=== PATIENT | male | born 1995 | race Two or more races ===

== ENCOUNTER 2024-06-04 07:07 | Day surgery (SDC) | payer OTHER, SELFPAY ==
[2024-06-04] VITALS (16 sets, daily range): BP systolic 97–130; BP diastolic 61–78; PULSE 50–73; RESP 12–16; TEMP 36.1–37.1; O2SAT 95–98; BMI 35.9
--- NOTE | 2024-06-04 07:40 | W.PM.H&PU ---
History & Physical Update History & Physical Update H&P Reviewed and patient assessed: No changes noted
[2024-06-04] MEDS: SODIUM CHLORIDE 0.9 % (FLUSH) 10 ML SYRINGE IVF (08:00)
[2024-06-04] MEDS: 0.9 % SODIUM CHLORIDE 500 ML 500 ML 100 ML IV (08:00)
--- NOTE | 2024-06-04 08:21 | SUR.PREOP ---
TIME?OUT:?0821 PT/RN/MDA?VERIFICATION?OF?SURGICAL?SITE,?PROCEDURE,?AND?CONSENT OBTAINED?PRIOR?TO?INVASIVE?PROCEDURE.
[2024-06-04] MEDS: fentaNYL 100 MCG/2 ML inj IVP (08:23)
[2024-06-04] MEDS: MIDAZOLAM HCL 1 MG/ML inj IVP (08:23)
--- NOTE | 2024-06-04 08:54 | W.ANESCHARGE ---
Anesthesia Charges Start Date/Time Anesthesia Start Date: 06/04/24 Anesthesia Start Time: 09:01 Stop Date/Time Anesthesia Stop Date: 06/04/24 Anesthesia Stop Time: 12:01
--- NOTE | 2024-06-04 08:54 | W.PM.NB ---
Nerve Block Nerve Block Time Seen by Provider: 08:30 Type of block requested by surgeon for post-operative analgesia: popliteal Side: right Time out performed: Yes Verification of patient name: Yes Verification of date of : Yes Site marking: site marked Name of person performing procedure: Charles Continuous monitoring Was continuous monitoring of O2 sat, B/P, personnel monitor, recorded every 15 minutes?: Yes Procedure Checklist: sterile prep, needles and gloves Ultrasound guided. Images saved: Yes Medications given in 5ml increments after negative aspiration: Marcaine %: 0.25 mL: 20 Needle gauge: 20 Patient tolerated procedure well: Yes Additional comments: Needle noted adjacent to nerve Block Charges Block Charge (with Pro Fee): Sciatic Nerve Use of Ultrasound Machine for Block: Yes- US Guidance/pain block
--- NOTE | 2024-06-04 08:55 | P.NB_ITS ---
Nerve Block Nerve Block Time Seen by Provider: 08:30 Date Seen: 06/04/24 Type of block requested by surgeon for post-operative analgesia: femoral Side: left Time out performed: Yes Verification of patient name: Yes Verification of date of : Yes Site marking: site marked Name of person performing procedure: Charles Continuous monitoring Was continuous monitoring of O2 sat, B/P, cardiac rehabilitation program director, recorded every 15 minutes?: Yes Procedure Checklist: sterile prep, needles and gloves Ultrasound guided. Images saved: Yes Medications given in 5ml increments after negative aspiration: Marcaine %: 0.25 mL: 15 Needle gauge: 20 Precedex (mcg): 25 Patient tolerated procedure well: Yes Block Charges Block Charge (with Pro Fee): Femoral Nerve Use of Ultrasound Machine for Block: Yes- US Guidance/pain block
[2024-06-04] MEDS: Heparin 30,000 units/30 ml 30000 UNIT TOPICAL (09:00)
[2024-06-04] MEDS: CEFAZOLIN 2 GM in 0.9 % SODIUM CHLORIDE Mini-bag 100 ML IVPB (09:12)
--- NOTE | 2024-06-04 09:48 | CRLHL7_ITS ---
For Patients: As a result of the Century Cures Act, medical imaging exams and procedure reports are released immediately into your electronic medical record. You may view this report before your referring provider. If you have questions, please contact your health care provider. HISTORY: Intraoperative. TECHNIQUE: Fluoroscopy was provided intraoperatively for the surgical service. Single spot film acquired. COMPARISON: No prior. FINDINGS: Single spot film demonstrates a frontal view of the left knee. Dictated by Antony Lazaro MD @ 06/05/2024 5:55:26 AM (Electronically Signed)
--- NOTE | 2024-06-04 11:29 | PM.ORPRC ---
Procedure Note Date of procedure: 06/04/24 Procedure: PREOPERATIVE DIAGNOSIS: 1. Left knee ACL tear, acute 2. Left knee lateral meniscus tear, posterior horn/root 3. Left knee medial meniscus tear POSTOPERATIVE DIAGNOSIS: 1. Left knee ACL tear, acute 2. Left knee lateral meniscus tear, posterior horn/root 3. 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 Grade 3-4 chondromalacia small region patella median ridge centrally the over an 8 mm diameter region. PROCEDURE: 1. Left knee ACL arthroscopic reconstruction with independent tunnel drilling (quad tendon autograft with internal brace) 2. Bone graft/bone marrow concentrate harvest from proximal tibia via separate incision (60ml aspirated) SURGEON: Ko Baird M.D. POULTRY AND [employer] BUTCHER: Alexandre Mcbride PA-C; Frederick PANDEY. Of note, assistants were critical for this case to aid in patient positioning, knee manipulation, instrument exchange, graft preparation, camera assistance, bone graft harvest, and closure. ANESTHESIA: Spinal anesthetic plus femoral nerve block EBL: 25 mL TOURNIQUET: 110 minutes at 300 torr IMPLANTS: Arthrex tight rope femoral button; Arthrex tibial ABS button; Arthrex 4.75 mm PEEK SwiveLock suture anchor (x1); Allosync Pure demineralized bone matrix COMPLICATIONS: None evident INDICATIONS: The patient is a pleasant 28-year-old male. They experienced a left knee ACL disruption injury within the last month. MRI at that time confirmed ACL tear along with lateral meniscus tear near the posterior horn/root. There is also concern for medial meniscus possible tear. The patient desires to remain physically active with cutting/pivoting type activitiies/sports. Accordingly, surgery was indicated. FINDINGS: Exam under anesthesia revealed positive Kate's showing grade 2B. Positive pivot shift with a thud clunk. The diagnostic arthroscopy showed small region of grade 3-4 chondromalacia patella centrally on the median ridge. Also grade 2-3 chondromalacia weight-bearing portion medial femoral condyle over 10 mm diameter region and lateral femoral condyle over a 25 mm diameter region. The lateral meniscus was torn from the posterior root with some hemorrhagic tissue and frayed fibers in this region. The medial meniscus was otherwise intact including the posterior root and without any ramp lesions evident. The ACL was torn with positive empty wall sign. PCL was intact and robust. DESCRIPTION OF PROCEDURE: After a thorough discussion of risks, benefits, and alternatives, the patient was brought to the operating room and placed upon the operating table. Induction of anesthesia was undertaken as previously noted. 2g IV Ancef was administered within 1 hr of incision preoperatively. Appropriate time-out was performed identifying proper patient, site, and procedure. The left lower extremity was prepped and draped in the appropriate sterile fashion using ChloraPrep. Prior to tourniquet inflation, a small incision was made just lateral to tibial tubercle with 15 blade knife. The Arthrex Edwardo bone marrow aspiration trocar was then inserted and directed posterior and slightly proximal. 60 mL bone marrow aspiration was completed in a heparinized syringe. Blood was drawn to total 60ml of fluid for centrifugation. This was then spun in a centrifuge and bone marrow concentrate later utilized. This concentrate was mixed with Allosync Pure DBM and the autograft bone captured in the graft net device from tunnel drilling. This mixture was eventually placed into the sockets that were created for the ACL graft. After the bone marrow aspiration, the limb was exsanguinated and tourniquet inflated. A transverse incision was made approximately 1 cm proximal to the superior pole of the patella. We excised the subcutaneous fat sharply. The quad tendon was then visualized from the patellar attachment all the way more proximal towards its muscular transition. A 10mm double blade was utilized to sharply incise the quad tendon from the superior pole of patella as it was directed more proximally. This was done under direct visualization. We released it from the patella and placed it through the quad pro tendon harvester. (A partial-thickness quad tendon graft was able to be harvested due to the robustness of his quad.) This was turned in quarter turns slowly with proximal directed force. We passed this up approximately 65-68 mm of tendon. The tendon was then retrieved out the side hole and the quad pro cutting mechanism engaged with a robust quad tendon harvested of approximately that same target length. The quad was reapproximated with # 2-0 Stratafix in a running, locking fashion. Meanwhile, the graft was then prepared on the back table. Anterolateral and anteromedial portals were established with an 11 blade, and a diagnostic arthroscopy was performed. This identified the findings as noted above. Following the diagnostic arthroscopy, the lateral meniscus posterior root tear was further identified, freshened with a combination of arthroscopic shaver and arthroscopic rasp, and prepared for repair. Meanwhile, the remaining ACL graft fibers were debrided with the shaver. Our attention was turned to ACL tunnel creation/preparation and lateral posterior meniscus root repair. For the posterior root repair, a FlipCutter was utilized with the appropriate guide. The guide was placed, a small incision made over the anteromedial proximal leg adjacent to the tibial tubercle. Initially a guide pin was placed and once it was confirmed to be in the appropriate footprint of the posterior root lateral meniscus location, a FlipCutter was then drilled, the blade flipped, and retro drilled approximately 15 mm. This was after the lateral meniscus posterior horn was captured with 2 separate 2-0 FiberWire luggage tag type of suture passes with the meniscal scorpion. The sutures were not passed through the tunnel initially until the tibial tunnel had also been drilled for the ACL graft so as not to damage the sutures. Thus, a FlipCutter was utilized with a 10 mm graft measured and thus the same size hole created in both the femur (10 mm) and tibia (10 mm) with separate guides for independent tunnel drilling technique. After preparing the graft and drilling the tunnels, the button was passed out the lateral femoral cortex and confirmed to be flipped and apposed against the cortex with C-arm fluoroscopic imaging. After the button was passed, we utilized the autograft/allograft mixture which included autograft bone captured from the ACL tunnel drilling with the Arthrex Graft Net, the bone marrow autograft obtained from the proximal tibial plateau from the original incision over the proximal anterolateral tibia with the trocar, and the Allosync Pure demineralized bone matrix. This mixture of autograft and allograft was passed into the ACL tunnels with a beveled cannula under direct visualization. Then, the ACL graft was passed without difficulty 1st into the femoral socket and finally dunked into the tibial socket. After cycling the knee 35+ times with tension on the tibial sutures, we secured the tibial side with the tibial ABS button. After this, the internal brace suture tails (which had been passed through the ABS button) and the meniscus root repair sutures were secured with a PEEK SwiveLock suture anchor with the knee near full extension a slight posterior drawer applied being sure not to over tension this Internal Brace. The knee again was cycled and complete tension finalized on the femoral side again with the knee near full extension and a posterior drawer applied. A Kate test was performed again, and found to be stable. The graft and the meniscus repair was reprobed on the inside of the knee and again found to be taut and stable. The shaver was also utilized to ensure all remaining bony debris was evacuated from the medial and lateral compartments as well as suprapatellar pouch. At this stage, closure was completed with 2-0 Vicryl and 4-0 Monocryl to close the subcutaneous and subcuticular layers, respectively. Dressings were applied, tourniquet deflated, the patient awoken from anesthesia and transferred to the PACU in stable condition. PLAN: 1. Toe-touch weightbear operative extremity. Crutch / walker ambulation assistance PRN until quad control present at which time may advance to weightbear as tolerated if brace locked in full extension when she is more alert. 2. Ice, acetominophen and/or ibuprofen, and oxycodone for pain as needed. 3. Knee range of motion and quad sets/straight leg raise regularly, guided by physical therapy. 4. Follow up with PA visit in 1-2 weeks for a wound check.
[2024-06-04] MEDS: ONDANSETRON 2 MG/ML inj 4 MG IVP (12:02)
--- NOTE | 2024-06-04 12:02 | W.ANESCHARGE ---
Anesthesia Charges Start Date/Time Anesthesia Start Date: 06/04/24 Anesthesia Start Time: 09:01 Stop Date/Time Anesthesia Stop Date: 06/04/24 Anesthesia Stop Time: 12:01
== END 2024-06-04 13:28 | disposition home or self-care (01) ==
PROVIDERS: Visit Provider Orthopaedic Surgery Sports Medicine
PROC: (CPT 29888; principal; 2024-06-04 09:00)
DX: S83.512A Sprain of anterior cruciate ligament of left knee, initial encounter (principal); S83.282A Other tear of lateral meniscus, current injury, left knee, initial encounter; M94.262 Chondromalacia, left knee; G89.18 Other acute postprocedural pain
CPT/HCPCS: 29888; 20999; 29881; 01400; 64445; 64447; 73560; 76942; C1713; J0665; J0690; J1100; J1644; J2250; J2405; J2704; J3010; J7030; Q4125

== ENCOUNTER 2024-06-22 13:45 | Outpatient (RCR) | payer OTHER, SELFPAY | END 2024-10-19 09:35 | disposition home or self-care (01) | PROVIDERS: PCP Physician Assistant Surgical; Visit Provider Physician Assistant Surgical | DX: S83.282A Other tear of lateral meniscus, current injury, left knee, initial encounter (principal); S83.412A Sprain of medial collateral ligament of left knee, initial encounter; Z98.890 Other specified postprocedural states; M94.262 Chondromalacia, left knee; M25.562 Pain in left knee; R53.1 Weakness; Z74.09 Other reduced mobility; R26.9 Unspecified abnormalities of gait and mobility; Z51.89 Encounter for other specified aftercare | CPT/HCPCS: 97110; 97140; 97161 ==

== ENCOUNTER 2024-07-02 16:09 | Emergency (ER) | payer OTHER, SELFPAY ==
[2024-07-02 16:25] VITALS: BP 143/89; PULSE 74; RESP 16; TEMP 36.9; O2SAT 95; BMI 35.0
--- NOTE | 2024-07-02 16:32 | CRLHL7_ITS ---
For Patients: As a result of the Century Cures Act, medical imaging exams and procedure reports are released immediately into your electronic medical record. You may view this report before your referring provider. If you have questions, please contact your health care provider. INDICATION: calf pain, recent knee surgery. TECHNIQUE: Ultrasound venous duplex lower left extremity. Compression venous exam was performed using ibarra-scale, color Doppler, and spectral Doppler analysis. COMPARISON: None. FINDINGS: Deep veins: Sonographic imaging demonstrates the left common femoral, deep femoral, superficial femoral, popliteal, posterior tibial and the contralateral right common femoral veins to be fully compressible with normal color Doppler blood flow. Superficial veins: Greater saphenous vein is fully compressible. IMPRESSION: Normal left lower extremity venous ultrasound, no sign of deep venous thrombosis. Dictated by Errol Carmichael MD @ 07/02/2024 5:31:21 PM (Electronically Signed)
--- NOTE | 2024-07-02 16:33 | ED_ITS ---
HPI - General Adult General Time Seen by Provider: 16:33 Date Seen: 07/02/24 Chief complaint: Extremity Pain/Injury, Lower Stated complaint: pain in left leg Time Seen by Provider: 07/02/24 16:15 Source: patient and RN notes reviewed Mode of arrival: ambulatory Limitations: no limitations History of Present Illness HPI narrative: This 29-year-old male whom had anterior cruciate ligament repair of his left knee on June 04 is coming in with calf discomfort. He admits he was wearing the brace on his leg more this weekend, and is not sure if it just rubbed or aggravated his symptoms. He noted more calf pain Tuesday but certainly Tuesday. Seemed to be worse. He is still nonweightbearing but is doing some range of motion exercises. He has crutches. He has never had a blood clot before, there is maybe a cousin that might of had 1 but no one in his close family members. He did use a bit of aspirin with the calf pain, does have concerns that this could be a blood clot. He is a physical therapist, has been doing some range of motion. He notes no fevers or chills, no chest pain, no respiratory or shortness of breath symptoms. Related Data Home Medications ?Medication ?Instructions ?Recorded ?Confirmed No Known Home Medications 07/02/24 07/02/24 Allergies Allergy/AdvReac Type Severity Reaction Status Date / Time No Known Drug Allergies Allergy Verified 06/12/24 14:52 Review of Systems Narrative: As per HPI. [facility] Surgical History History of repair of anterior cruciate ligament of left knee (06/04/24) ?Z98.890 - Other specified postprocedural states (ICD-10) History of eye surgery ?Z98.890 - Other specified postprocedural states (ICD-10) S/P excision of lipoma ?Z98.890 - Other specified postprocedural states (ICD-10) ?Z86.018 - Personal history of other benign neoplasm (ICD-10) History of arthroscopy of left shoulder (2019) ?Z98.890 - Other specified postprocedural states (ICD-10) History of appendectomy ?Z90.49 - Acquired absence of other specified parts of digestive tract (ICD- 10) Family History Family/Other Breast cancer Grandmother Osteoarthritis Stroke Grandfather Osteoarthritis Social History Smoking Status: Never smoker Do you use any of these nicotine containing products: None Second hand tobacco smoke exposure: No How often do you have a drink containing alcohol: 2-3 times a week Alcohol type: beer How many standard drinks containing alcohol do you have on a typical day: 1 or 2 How often do you have six or more drinks on one occasion: Never AUDIT-C Alcohol total score: 3 Non-prescribed substance use: denies use Caffeine: Yes Exam Const: Vital Signs, click to edit/add: Vital Signs - 24 hr 07/02/24 16:25 Temperature 98.4 F Pulse Rate [Pulse Oximeter] 74 Respiratory Rate 16 Blood Pressure [Ri ght Upper Arm] 143/89 H Pulse Oximetry 95 Oxygen Delivery Me thod Room Air This 29-year-old male is alert, interactive, no apparent distress, sitting up on the edge of the bed in exam room 1. Able speak in complete sentences. Lungs are clear, good air entry, no wheezing or crackles. CV regular rate and rhythm, no murmur, normal S1-S2. His knee and left lower extremity do have some increased swelling in comparison to the right. The surgical wounds are well healing, no erythema. There is still moderate soft tissue swelling about the knee but no significant warmth or erythema. This does extend down into the calf posteriorly. He does not have any extensive pretibial edema of this extremity. Neurovascular is intact. Documenting provider has reviewed patient's vital signs: yes Course Course ED Course: Will obtain ultrasound imaging of his calf to rule out DVT. If positive and below the knee, may need to do D-dimer and discuss further options with patient. Obviously if positive, will initiate discussion of anticoagulation with him. It is possible that this is just routine postoperative swelling and settling of edema and swelling that can cause some discomfort that settles down the calf due to gravity. Reevaluation(s) Time of Reevaluation #1: 16:56 Reevaluation #1: Per field sales specialist, preliminary report is negative for DVT. Will update patient. Vital Signs Vital signs: Initial Vital Signs Temperature 98.4 F 07/02/24 16:25 Temperature Source Temporal Artery Scan 07/02/24 16:25 Pulse Rate 74 07/02/24 16:25 Respiratory Rate 16 07/02/24 16:25 Blood Pressure 143/89 H 07/02/24 16:25 Blood Pressure Mean 107 H 07/02/24 16:25 Blood Pressure Position Sitting 07/02/24 16:25 Pulse Oximetry 95 07/02/24 16:25 Oxygen Delivery Method Room Air 07/02/24 16:25 Vital Signs Temperature 98.4 F 07/02/24 16:25 Pulse Rate 74 07/02/24 16:25 Respiratory Rate 16 07/02/24 16:25 Blood Pressure 143/89 H 07/02/24 16:25 Pulse Oximetry 95 07/02/24 16:25 Oxygen Delivery Method Room Air 07/02/24 16:25 Temperature 98.4 F 07/02/24 16:25 Pulse Rate 74 07/02/24 16:25 Respiratory Rate 16 07/02/24 16:25 Blood Pressure 143/89 H 07/02/24 16:25 Pulse Oximetry 95 07/02/24 16:25 Oxygen Delivery Method Room Air 07/02/24 16:25 Medical Decision Making Imaging Data Venous US: Attestation: I have reviewed the pertinent imaging results. Radiologist's impression: Patient: LEEANN MOORE Facility:?[facility] Patient ID:?[id number] Site Patient ID:?[id number]. Site :?[id number] Study:?US-Extremity Left LEV-07/02/2024 5:03:31 PM Ordering Physician:Sonali Aiken Final Report: INDICATION: calf pain, recent knee surgery. TECHNIQUE: Ultrasound venous duplex lower left extremity. Compression venous exam was performed using ibarra-scale, color Doppler, and spectral Doppler analysis. COMPARISON: None. FINDINGS: Deep veins: Sonographic imaging demonstrates the left common femoral, deep femoral, superficial femoral, popliteal, posterior tibial and the contralateral right common femoral veins to be fully compressible with normal color Doppler blood flow. Superficial veins: Greater saphenous vein is fully compressible. IMPRESSION: Normal left lower extremity venous ultrasound, no sign of deep venous thrombosis. Dictated by Errol Camrichael MD @ 07/02/2024 5:31:21 PM (Electronic Signature) Discharge Plan Discharge Clinical Impression: History of repair of anterior cruciate ligament of left knee, Pain of left calf Patient Disposition: Home, Self-Care Condition: Stable Additional Instructions: Recommend elevating and icing this extremity in your knee to help decrease pain and swelling. Continue with postoperative recommendations as per your surgeon. Prescriptions: No Action No Known Home Medications Follow Up/Referrals: Ko Baird MD [Primary Care Provider] - Stand Alone Forms: [employer] Info Instructions
--- OUTSIDE RECORDS SUMMARY | 2024-07-02 17:14 | XMS_ITS | Clinical Summary ---
Author Organization [facility] Address [place], [place] [address] Care Team Providers Care Hazardous Waste Material Technician Name Role Phone Daryl Carrero MD Primary Care Provider [phone] Allergies No known active allergies Medications Medication Sig Dispensed Refills Start Date End Date Status omeprazole (PRILOSEC) 20 mg Delayed-Release capsuleIndications:C hronic GERD TAKE 1 CAPSULE(20 MG) BY MOUTH EVERY DAY BEFORE A MEAL 90 Capsule 1 09/13/2022 Active buPROPion (WELLBUTRIN XL) 150 mg Extended-Release tabletIndications:An xiety Take 1 Tablet (150 mg) by mouth once daily in the morning. 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 Take 30min to 4 hours before sexual activity. Max 100mg/24hr. 10 Tablet 11 12/29/2023 Active docusate (COLACE) 100 mg capsule Take 100 mg by mouth. 01/27/2023 Active sertraline (ZOLOFT) 25 mg tablet Take 25 mg by mouth. Active Active Problems Problem Noted Date Diagnosed Date Left ACL tear 05/09/2024 Appendicitis 01/31/2023 Gynecomastia, male 02/23/2017 Overview (02/23/2017): Added automatically from request for surgery [id number] Lipoma of back 02/23/2017 Overview (02/23/2017): Added automatically from request for surgery [id number] Encounter for long-term (current) use of other m edications 07/14/2006 Snoring Resolved Problems Problem Noted Date Diagnosed Date Resolved Date Other ankle sprain and strain 11/13/2009 03/02/2017 Overview (11/13/2009): grade 1 sprain of Anterior talo fibular ligament Closed fracture of unspecified part of fibula 04/24/20 09 11/13/2009 Depressive disorder, not elsewhere classified 06/30/20 06 02/28/2008 Anxiety state, unspecified 06/30/2006 0 02/28/2008 Unspecified asthma(493.90) 02/21/2006 1 Overview (02/21/2006): EXERCISE INDUCED Encounters Date Type Department Care Team Description 05/18/2024 10:00 AM CDT Preop Visit [facility] [address] [place] [address] Terrence Ramos PA Preoperative Exam (Left knee ACL repair DOS: 06/04/2024) 05/18/2024 Travel from Last 3 Months Immunizations Name Administration Dates Next Due AMB INFLUENZA, IIV4 (AGE=>6M OS) MDV (Flu Clinic Only) 05/10/2022 COVID-19 vaccine (Moderna 100mcg/0.5mL) PF, MDV 09/29/2020,08/29/2020 COVID-19 vaccine (Moderna 50 mcg/0.5mL) 12YO+ BIVALENT PF, MDV 06/23/2022 Jessica Skin Test 02/14/2014 DTaP 04/24/2001, 7,01/04/1996,11/20,1995 HIB PRP-OMP (PedvaxHIB) 10/31/1996,01/03,1995,09/09 HPV 9 (Gardasil 9) 05/17/2022,01/10/2017 Hep B (Hepatitis B (Adult) R ecombinant Adjuvanted) 08/06/2022 Hepatitis A (Adult) 09/06/2013 Hepatitis B (Peds) 01/04/1996,1995, 995 Human Papilloma Virus Vaccine 09/06/2013 Influenza, IIV3 (Age >=3 years) 09/06/2013 Influenza, IIV4 07/09/2021, 0,04/18/2019,04/18,07/22/2017 MENINGOCOCCAL VACCINE 2 VIAL 2MO-55YO (MENVEO) 03/21/2012 MMR 04/24/2001,10/31/1996 Oral Polio Vaccine 04/24/2001, 6,1995,09/09 Td (Age >=7 Years) 01/21/2008 Tdap 09/01/2017 Tuberculin (PPD) 07/21/2020, 0,07/16/2019,07/14 Varicella Vaccine 10/05/2017,08/31/2017 Family History Medical History Relation Name Comments Cancer-breast Maternal Aunt Hypertension Maternal Grandfather Diabetes Other Maternal side, none close to child Relation Name Status Comments Father Alive Maternal Aunt Maternal Grandfather Alive Maternal Grandmother Alive Mother Alive Other Paternal Grandfather Suicide Paternal Grandmother Alive Sister 1 Alive Sister 2 Alive Sister 3 Alive Social History Tobacco Use Types Packs/Day Years Used Date Smoking Tobacco: Never Smokeless Tobacco: Never Tobacco Cessation:Counseling Given: No Comments:no smokers in the house Alcohol Use Standard Drinks/Week Comments Yes 0 (1 standard drink = 0.6 oz pur e alcohol) socially PHQ-2 Answer Date Recorded PHQ-2 TOTAL SCORE 3 12/29/2023 Social Connections Answer Date Recorded Do you often feel lonely or isolated from those around you? 0 12/29/2023 Financial Resource Strain Answer Date R ecorded Difficulty of Paying Living Expenses 3 12/29/2023 Difficulty of Paying Living Expenses Not on file 12/29/2023 Food Insecurity Answer Date Recorded Do you worry your food will run out before you are able to buy more? 1 12/29/2023 Transportation Needs Answer Date Record ed Does lack of transportation keep you from medica l appointments? 1 12/29/2023 Does lack of transportation keep you from work, meetings or getting things that you need? 1 12/29/2023 Housing Stability Answer Date Recorded What is your housing situation today? 1 12/29/2023 Sex and Gender Information Value Date Recorded Sex Assigned at Not on file Gender Identity Not on file Sexual Orientation Not on file Obstetrics History Last Filed Vital Signs Vital Sign Reading Time Taken Comments Blood Pressure 130/80 05/18/2024 10:02 AM CDT Pulse 62 05/18/2024 10:02 AM CDT Temperature 36.4 C (97.5 F) 05/13/2022 7:30 PM CDT Respiratory Rate 16 05/13/2022 6:43 PM CDT Oxygen Saturation 96% 05/18/2024 10:02 AM CDT Inhaled Oxygen Concentration - - Weight 120.2 kg (265 lb) 05/18/2024 10:02 AM CDT Height 182.9 cm (6') 05/18/2024 10:02 AM CDT Body Mass Index 35.94 05/18/2024 10:02 AM CDT Plan of Treatment Health Maintenance Due Date Last Done Comments HIV for age 15-65 2010 COVID-19 vaccine series ( season) 2024 06/23/2022, 07/03/2021, 09/29/2020, Additional history exists Influenza for age 9-49 04/01/2024 , 07/09/2021, 04/14/2020, Additional history exists Depression screening for age 12+ 12/28/2024 12/29/2023, 05/17/2022, 05/17/2022, Additional history exists BMI (ht and wt on same day) for age 18+ 05/18/2025 05/18/2024, 12/29/2023, 05/17/2022, Additional history exists Tetanus booster 09/01/2027 09/01/2017, 01/21/2008 Tdap Completed 09/01/2017 Hepatitis C screening for age 18-79 Completed 05/17/2022 Pneumococcal series for age 6-64 Aged Out No longer eligible based on patient's age to complete this topic Procedures Procedure Name Priority Date/Time Associated Diagnosis Comments ANTI HCV Routine 05/17/2022 2:20 PM CDT Need for hepatitis C screening test from Last 3 Months or Most Recently Relevant to Health Maintenance Results * ANTI HCV (05/17/2022 2:20 PM CDT) HEPATITIS C ANTIBODY Non-React leah Non-React leah 05/18/2022 12:24 AM CDT [facility] Comment:Antibodies to HCV no t detected; does not exclude the possibility of exposure to HCV. Blood BLOOD SPECIMEN / Unknown Venipuncture / Unknown 05/17/2022 2:20 PM CDT 05/17/2022 2:20 PM CDT Erika ABAD SEND OUTS [facility] [address] [place] [address], from Last 3 Months or Most Recently Relevant to Health Maintenance Advance Directives * Full Code (Latest Code Status on File) Date Activated Date Inactivated Comments 03/11/2017 9:11 AM 03/11/2017 12:53 PM * Full Code Date Activated Date Inactivated Comments 03/11/2017 5:53 AM 03/11/2017 9:11 AM Care Teams Hazardous Waste Material Technician Relationship Specialty Start Date End Date Daryl Carrero MD [address] [place] [place] [address] PCP - General 07/07/05
--- OUTSIDE RECORDS SUMMARY | 2024-07-02 21:18 | XMS_ITS | Clinical Summary ---
Author Organization [facility] Address [place], [place] [address] Care Team Providers Care Solar Sales Representative Name Role Phone Daryl Carrero MD Primary Care Provider [phone]- [phone] Allergies No known active allergies Medications Medication [...] (02/23/2017): Added automatically from request for surgery [id number] Lipoma of back 02/23/2017 Overview (02/23/2017): Added automatically from request for surgery [id number] Encounter for long-term (current) use of other [...] Description 05/18/2024 10:00 AM CDT Preop Visit [facility] [address] [place] [address] Terrence Ramos PA Preoperative Exam (Left knee [...] leah Non-React leah 05/18/2022 12:24 AM CDT [facility] Comment:Antibodies to HCV no t detected; does not exclude the possibility of exposure to HCV. Blood BLOOD SPECIMEN / Unknown Venipuncture / Unknown 05/17/2022 2:20 PM CDT 05/17/2022 2:20 PM CDT Erika AB[facility] [address] [place] [address], from Last 3 Months or Most Recently Relevant to Health Maintenance Advance Directives * Full Code (Latest Code Status on File) Date Activated Date Inactivated Comments 03/11/2017 9:11 AM 03/11/2017 12:53 PM * Full Code Date Activated Date Inactivated Comments 03/11/2017 5:53 AM 03/11/2017 9:11 AM Care Teams Solar Sales Representative Relationship Specialty Start Date End Date Daryl Carrero MD [address] [place] [address] PCP - General 07/07/05
== END 2024-07-02 17:20 | disposition home or self-care (01) ==
LOC: ED 17:13
PROVIDERS: Emergency Provider Family Medicine; PCP Orthopaedic Surgery Sports Medicine
DX: M79.605 Pain in left leg (principal); Z98.890 Other specified postprocedural states
CPT/HCPCS: 93971; 99283; 99284